=== PATIENT | male | born 1950 | race Caucasian/White ===

== ENCOUNTER → 2018-05-05 | Outpatient (CLI) | payer MEDICARE, BC ==
[~2018-05-05] MED LIST: AMLODIPINE BESY10 MG PO; ASA5UEC PO; ASPIRIN325 PO; ATORVASTATIN CA40 MG PO; CIPRO500 MG PO; COLACE100 MG PO; CRESTOR10 MG PO; FISH OIL 1,001000 M2 PO; FLAGYL500 MG PO; GEMFIBROZIL 60600 M1 PO; GEMFIBROZIL 60600 MG PO; INVANZ1 GM IV; LEVOTHYROXINE 0.15MG PO; LIPITOR80 MG PO; NAPROSYN500 MG PO; NORCO 5-325 TA1 EACH PO; NORCO 7.5-3251 EACH PO; NORVASC10 MG PO; OMEGA-31000 M1 PO; OMEPRAZOLE20 M1 PO; OMEPRAZOLE20 M2 PO; PAXIL10 MG; PROBIOTIC1 EAC1 PO; PROSCAR 5MG TABL5 MG PO; VITAMIN D35000 UNI1 PO; VITAMINC500 PO
== END ==
LOC: M.ULTRA 08:43
DX: I82.402 Acute embolism and thrombosis of unspecified deep veins of left lower extremity (principal)

== ENCOUNTER → 2018-06-14 | Outpatient (CLI) | payer MEDICARE, BC | LOC: M.RAD 11:47 | DX: R06.02 Shortness of breath (principal); R05 Cough ==

== ENCOUNTER → 2018-10-28 | Outpatient (CLI) | payer MEDICARE, BC | LOC: M.ULTRA 10-27 11:00 | DX: R59.0 Localized enlarged lymph nodes (principal) ==

== ENCOUNTER → 2019-09-25 | Outpatient (CLI) | payer MEDICARE, BC | LOC: M.ULTRA 15:30 | DX: M79.604 Pain in right leg (principal); R60.0 Localized edema ==